=== PATIENT | female | born 1985 | race Hispanic/Latino ===

== ENCOUNTER 2022-04-25 11:22 | Emergency (ER) | payer OTHER ==
[~2022-04-25] VITALS: Ht 180.3 cm; Wt 115.2 kg
[2022-04-25 13:17] LABS: BASOPHILS % (AUTO) 0.3 % (0.0-5.0); EOSINOPHILS % (AUTO) 1.3 % (0.0-8.0); HEMATOCRIT 44.8 % (36-48); LYMPHOCYTES % (AUTO) 9.3 % (21.0-51.0); MEAN CORPUSCULAR HEMOGLOBIN 28.4 pg (27.0-33.0); MEAN CORPUSCULAR HGB CONC 31.5 g/dL (32.0-36.0); MEAN CORPUSCULAR VOLUME 90.3 fL (79-99); MONOCYTES % (AUTO) 2.9 % (3.0-13.0); NEUTROPHILS % (AUTO) 85.2 % (40.0-77.0); PLATELET COUNT (AUTO) 358 K/uL (130-400); RED BLOOD CELL COUNT(AUTO) 4.96 MIL/uL (4.00-5.50); RED CELL DISTRIBUTION WIDTH 12.4 % (11.0-15.5)
[2022-04-25] MEDS ORDERED: CYCL10TA16 PO (13:22)
[2022-04-25] MEDS ORDERED: NAPR500T6 PO (13:22)
[2022-04-25] MEDS ORDERED: PRED20TA3 PO (13:22)
[2022-04-25 13:24] VITALS: BP 110/70
[2022-04-25] MEDS ORDERED: KETOROLAC 30MG VIAL (30MG/ML) IM ONE (13:30)
[2022-04-25] MEDS ORDERED: PREDNISONE 20 MG TABLET PO ONE (13:30)
[2022-04-25 13:58] LABS: CREATININE 0.8 mg/dL (0.5-1.5); POTASSIUM 4.3 mmol/L (3.5-5.1)
[2022-04-25 14:21] LABS: ALBUMIN 3.3 g/dL (3.5-5.0); BILIRUBIN,TOTAL 0.3 mg/dL (0.2-1.0); TOTAL PROTEIN, SERUM 7.9 g/dL (6.0-8.3)
[2022-04-25 14:32] LABS: ERYTHROCYTE SEDIMENTATION RATE 35 MM/HR (0-20)
== END 2022-04-25 13:47 | disposition home or self-care (01) ==
LOC: EDH 11:22
DX: M54.31 Sciatica, right side (principal); M19.90 Unspecified osteoarthritis, unspecified site; M32.9 Systemic lupus erythematosus, unspecified; Z98.890 Other specified postprocedural states
CPT/HCPCS: 36415; 80053; 85025; 85651; 96372; 99283; J1885

== ENCOUNTER 2023-07-11 19:50 | Observation (INO) | payer OTHER ==
[~2023-07-11] VITALS: Ht 180.3 cm; Wt 106.0 kg
[~2023-07-11 19:50] MED LIST: CYCL10TA16 PO; NAPR500T6 PO; PRED20TA3 PO
[2023-07-11 20:35] VITALS: O2SAT 97
[2023-07-11 21:09] VITALS: BP 103/60; PULSE 75; RESP 18
[2023-07-11] MEDS ORDERED: ACETAMINOPHEN 325 MG TAB PO PRN ×2 (21:30)
[2023-07-11] MEDS ORDERED: LACTATED RINGERS IV ONE (21:30)
[2023-07-11] MEDS ORDERED: MORPHINE 2 MG SYG IV PRN (21:30)
[2023-07-11] MEDS ORDERED: ONDANSETRON 4MG INJ IV PRN (21:30)
[2023-07-11] MEDS ORDERED: MORPHINE 4 MG SYG IV PRN (21:30)
[2023-07-11 22:06] LABS: BASOPHILS # (AUTO) 0.02 K/uL (0.00-0.20); BASOPHILS % (AUTO) 0.8 % (0.0-5.0); EOSINOPHILS % (AUTO) 3.9 % (0.0-8.0); HEMATOCRIT 35.9 % (36-48); IMMATURE GRANULOCYTE ABSOLUTE 0.01 K/uL (0-1); LYMPHOCYTES # (AUTO) 0.8 K/uL (1.0-4.8); LYMPHOCYTES % (AUTO) 32.2 % (21.0-51.0); MEAN CORPUSCULAR HEMOGLOBIN 29.6 pg (27.0-33.0); MEAN CORPUSCULAR HGB CONC 34.3 g/dL (32.0-36.0); MEAN CORPUSCULAR VOLUME 86.5 fL (79-99); MONOCYTES # (AUTO) 0.2 K/uL (0.1-1.0); MONOCYTES % (AUTO) 7.4 % (3.0-13.0); NEUTROPHILS # (AUTO) 1.4 K/uL (1.8-7.7); NEUTROPHILS % (AUTO) 55.3 % (40.0-77.0); PLATELET COUNT (AUTO) 178 K/uL (130-400); RED BLOOD CELL COUNT(AUTO) 4.15 MIL/uL (4.00-5.50); RED CELL DISTRIBUTION WIDTH 12.2 % (11.0-15.5); WHITE BLOOD COUNT (AUTO) 2.6 K/uL (4.8-10.8)
[2023-07-11 22:18] LABS: HEMOGLOBIN A1C 5.1 % (4.0-6.0); INR 1.01 (0.85-1.15); PROTHROMBIN TIME 11.7 SEC (9.6-11.6)
[2023-07-11 22:19] LABS: PARTIAL THROMBOPLASTIN TIME 32.5 SEC (26.3-35.5)
[2023-07-11 22:31] LABS: MAGNESIUM 1.9 mg/dL (1.80-2.40); PHOSPHORUS 2.4 mg/dL (2.5-4.9)
[2023-07-11 22:53] LABS: BAND NEUTROPHILS % (MANUAL) 4 % (0-2); EOSINOPHILS % (MANUAL) 3 % (1-6); LYMPHOCYTES % (MANUAL) 20 % (22-44); MONOCYTES % (MANUAL) 12 % (2-9); REACTIVE LYMPHOCYTES 1 % (0-0); SEGMENTED NEUTROPHILS % 60 % (40-70); TOTAL CELLS COUNTED 100
[2023-07-11 22:54] LABS: MAN.DIFF COMMENT-IMPRESSION MANUAL DIFFERENTIAL; PLATELET MORPHOLOGY COMMENT ADEQUATE; WBC MORPHOLOGY VACUOLATION 1+
[2023-07-11 23:16] LABS: CREATININE 0.7 mg/dL (0.5-1.5); POTASSIUM 3.4 mmol/L (3.5-5.1)
[2023-07-11 23:21] LABS: ALBUMIN 2.6 g/dL (3.5-5.0); BILIRUBIN,TOTAL 0.3 mg/dL (0.2-1.0); TOTAL PROTEIN, SERUM 6.6 g/dL (6.0-8.3)
[2023-07-11] MEDS ORDERED: MAGNESIUM 2GM PREMIX 50ML 50 ML IV PRN (23:30)
[2023-07-11] MEDS ORDERED: POTASSIUM CHLORIDE 20MEQ/100ML 100 ML IV PRN (23:30)
[2023-07-11] MEDS ORDERED: POTASSIUM CHLORIDE 10% ELIXIR 20 MEQ/15 ML UDCUP PO PRN (23:30)
[2023-07-11 23:51] VITALS: BP 107/55; PULSE 77; RESP 18
[2023-07-12 04:00] VITALS: BP 110/52; PULSE 72; RESP 18
[2023-07-12 04:42] LABS: BASOPHILS # (AUTO) 0.02 K/uL (0.00-0.20); BASOPHILS % (AUTO) 0.8 % (0.0-5.0); EOSINOPHILS # (AUTO) 0.15 K/uL (0.00-0.70); EOSINOPHILS % (AUTO) 5.9 % (0.0-8.0); IMMATURE GRANULOCYTE ABSOLUTE 0.02 K/uL (0-1); LYMPHOCYTES # (AUTO) 0.9 K/uL (1.0-4.8); LYMPHOCYTES % (AUTO) 35.5 % (21.0-51.0); MEAN CORPUSCULAR HEMOGLOBIN 29.7 pg (27.0-33.0); MEAN CORPUSCULAR HGB CONC 33.8 g/dL (32.0-36.0); MEAN CORPUSCULAR VOLUME 87.9 fL (79-99); MONOCYTES # (AUTO) 0.2 K/uL (0.1-1.0); MONOCYTES % (AUTO) 8.2 % (3.0-13.0); NEUTROPHILS # (AUTO) 1.3 K/uL (1.8-7.7); NEUTROPHILS % (AUTO) 48.8 % (40.0-77.0); PLATELET COUNT (AUTO) 167 K/uL (130-400); RED BLOOD CELL COUNT(AUTO) 3.87 MIL/uL (4.00-5.50); RED CELL DISTRIBUTION WIDTH 12.3 % (11.0-15.5); WHITE BLOOD COUNT (AUTO) 2.6 K/uL (4.8-10.8)
[2023-07-12 04:52] LABS: CREATININE 0.7 mg/dL (0.5-1.5); POTASSIUM 3.3 mmol/L (3.5-5.1)
[2023-07-12] MEDS: ZOSYN 3.375GM+NS 50ML 50 ML IVPB SCH ×3 (05:02→21:02)
[2023-07-12 08:00] VITALS: BP 94/51; PULSE 60; RESP 18
[2023-07-12 08:14] VITALS: O2SAT 97
[2023-07-12] MEDS: FAMOTIDINE 20MG TAB PO SCH ×2 (09:01→21:02)
[2023-07-12] MEDS: HEPARIN 5,000 UNIT VIAL SQ SCH ×2 (09:03→13:29)
[2023-07-12] MEDS: BALSAM PERU/CASTOR OIL 60 GM TUBE TP SCH ×3 (09:06→21:02)
[2023-07-12] MEDS ORDERED: IOHEXOL 350 MG/ML 100ML INFUS..BTL IV ONE (10:08)
[2023-07-12 12:00] VITALS: BP 105/58; PULSE 62; RESP 18
[2023-07-12 16:00] VITALS: BP 103/62; PULSE 71; RESP 18
[2023-07-12 20:00] VITALS: BP 123/76; PULSE 74; RESP 18; O2SAT 97
[2023-07-13] VITALS: BP 95/51; PULSE 65; RESP 20
[2023-07-13 03:45] VITALS: BP 91/50; PULSE 69; RESP 20
[2023-07-13 04:58] LABS: BASOPHILS # (AUTO) 0.03 K/uL (0.00-0.20); EOSINOPHILS # (AUTO) 0.21 K/uL (0.00-0.70); HEMATOCRIT 33.3 % (36-48); IMMATURE GRANULOCYTE ABSOLUTE 0.01 K/uL (0-1); LYMPHOCYTES # (AUTO) 1.4 K/uL (1.0-4.8); LYMPHOCYTES % (AUTO) 47.8 % (21.0-51.0); MEAN CORPUSCULAR HEMOGLOBIN 29.2 pg (27.0-33.0); MEAN CORPUSCULAR HGB CONC 33.9 g/dL (32.0-36.0); MONOCYTES # (AUTO) 0.2 K/uL (0.1-1.0); NEUTROPHILS # (AUTO) 1.1 K/uL (1.8-7.7); NEUTROPHILS % (AUTO) 36.9 % (40.0-77.0); PLATELET COUNT (AUTO) 184 K/uL (130-400); RED BLOOD CELL COUNT(AUTO) 3.87 MIL/uL (4.00-5.50); RED CELL DISTRIBUTION WIDTH 12.3 % (11.0-15.5)
[2023-07-13] MEDS: ZOSYN 3.375GM+NS 50ML 50 ML IVPB SCH ×2 (05:15→14:43)
[2023-07-13 05:16] LABS: ALBUMIN 2.3 g/dL (3.5-5.0); BILIRUBIN,TOTAL 0.3 mg/dL (0.2-1.0); CREATININE 0.7 mg/dL (0.5-1.5); POTASSIUM 3.3 mmol/L (3.5-5.1); TOTAL PROTEIN, SERUM 6.1 g/dL (6.0-8.3)
[2023-07-13] MEDS: KCL 20 MEQ ERTAB PO PRN ×2 (06:42→10:23)
[2023-07-13 06:54] VITALS: BP 101/55; PULSE 70; RESP 18
[2023-07-13 06:57] LABS: BAND NEUTROPHILS % (MANUAL) 10 % (0-2); EOSINOPHILS % (MANUAL) 6 % (1-6); MAN.DIFF COMMENT-IMPRESSION MANUAL DIFFERENTIAL; MONOCYTES % (MANUAL) 10 % (2-9)
[2023-07-13 06:58] LABS: LYMPHOCYTES % (MANUAL) 37 % (22-44); PLATELET MORPHOLOGY COMMENT ADEQUATE; REACTIVE LYMPHOCYTES 2 % (0-0); SEGMENTED NEUTROPHILS % 35 % (40-70); TOTAL CELLS COUNTED 51; WBC MORPHOLOGY REACTIVE LYMPHS 1+
[2023-07-13 08:00] VITALS: O2SAT 97
[2023-07-13] MEDS ORDERED: RIVAROXABAN 20 MG TABLET PO SCH (08:00)
[2023-07-13] MEDS: FAMOTIDINE 20MG TAB PO SCH (08:20)
[2023-07-13] MEDS: BALSAM PERU/CASTOR OIL 60 GM TUBE TP SCH ×2 (09:07→14:46)
[2023-07-13 11:29] VITALS: BP 115/78; PULSE 63; RESP 18
[2023-07-13] MEDS ORDERED: KCL 20 MEQ ERTAB PO ONE (14:00)
[2023-07-13] MEDS ORDERED: CLIN300C3 PO (14:37)
[2023-07-13] MEDS ORDERED: RIVA20TA PO (14:40)
[2023-07-13] MEDS ORDERED: BALS60OI TP (14:40)
[2023-07-13 16:00] VITALS: BP 108/74; PULSE 69; RESP 18
== END 2023-07-13 17:25 | disposition home or self-care (01) ==
LOC: INTOOBSV 20:43 → 4CH 20:43
PROVIDERS: ADMIT Internal Medicine; ATTEND Internal Medicine
DX: E87.6 Hypokalemia (principal); L97.319 Non-pressure chronic ulcer of right ankle with unspecified severity; L40.9 Psoriasis, unspecified; L03.115 Cellulitis of right lower limb; M06.9 Rheumatoid arthritis, unspecified; D72.819 Decreased white blood cell count, unspecified; E11.9 Type 2 diabetes mellitus without complications; F12.90 Cannabis use, unspecified, uncomplicated; Z86.718 Personal history of other venous thrombosis and embolism; Z51.5 Encounter for palliative care; Z91.199 Patient's noncompliance with other medical treatment and regimen due to unspecified reason; Z79.899 Other long term (current) drug therapy
CPT/HCPCS: 96361 ×2; 83036 ×2; 83735; 84100; 80053 ×2; 85025 ×3; 85378; 85610; 85730; 86850; 86900; 86901; 87040 ×2; 83605; 36415 ×3; 73600; 71045; 93970; 93925; 84145; 96372; 96365; 96366 ×2; 96375; 80048; 84703; 87070; 71270; 84132; J2405; J2270; J2543 ×5; J1644 ×2; Q9967; G0378 ×3

== ENCOUNTER 2023-07-22 15:55 | Emergency (ER) | payer OTHER ==
[~2023-07-22] VITALS: Ht 180.3 cm; Wt 107.0 kg
[~2023-07-22 15:55] MED LIST changes: +BALS60OI TP; +CLIN300C3 PO; -CYCL10TA16 PO; -NAPR500T6 PO; -PRED20TA3 PO; +RIVA20TA PO
[2023-07-22 16:43] LABS: BASOPHILS # (AUTO) 0.03 K/uL (0.00-0.20); BASOPHILS % (AUTO) 0.2 % (0.0-5.0); EOSINOPHILS # (AUTO) 0.03 K/uL (0.00-0.70); EOSINOPHILS % (AUTO) 0.2 % (0.0-8.0); HEMATOCRIT 37.8 % (36-48); IMMATURE GRANULOCYTE ABSOLUTE 0.05 K/uL (0-1); LYMPHOCYTES # (AUTO) 0.9 K/uL (1.0-4.8); LYMPHOCYTES % (AUTO) 6.8 % (21.0-51.0); MEAN CORPUSCULAR HEMOGLOBIN 29.6 pg (27.0-33.0); MEAN CORPUSCULAR HGB CONC 33.1 g/dL (32.0-36.0); MEAN CORPUSCULAR VOLUME 89.6 fL (79-99); MONOCYTES # (AUTO) 1.3 K/uL (0.1-1.0); MONOCYTES % (AUTO) 10.1 % (3.0-13.0); NEUTROPHILS # (AUTO) 10.3 K/uL (1.8-7.7); NEUTROPHILS % (AUTO) 82.3 % (40.0-77.0); PLATELET COUNT (AUTO) 270 K/uL (130-400); RED BLOOD CELL COUNT(AUTO) 4.22 MIL/uL (4.00-5.50); RED CELL DISTRIBUTION WIDTH 12.9 % (11.0-15.5); WHITE BLOOD COUNT (AUTO) 12.5 K/uL (4.8-10.8)
[2023-07-22 17:02] LABS: ALBUMIN 2.9 g/dL (3.5-5.0); BILIRUBIN,TOTAL 0.8 mg/dL (0.2-1.0); CREATININE 1.5 mg/dL (0.5-1.5); TOTAL PROTEIN, SERUM 7.6 g/dL (6.0-8.3)
[2023-07-22 17:09] LABS: POTASSIUM 2.9 mmol/L (3.5-5.1)
[2023-07-22] MEDS ORDERED: POTASSIUM BICARB/CIT AC 25 MEQ TABLET.EFF PO ONE (17:30)
[2023-07-22] MEDS ORDERED: POTASSIUM CHLORIDE 10MEQ/100ML 10 MEQ/100 ML ML IV ONE (17:30)
[2023-07-22] MEDS ORDERED: CLIN-141 PO (18:33)
[2023-07-22] MEDS ORDERED: POTA-187 PO (18:33)
[2023-07-22] MEDS ORDERED: ONDANSETRON 4MG INJ ONE (19:45)
[2023-07-22] MEDS ORDERED: ONDA-104 PO (20:03)
[2023-07-22 20:06] VITALS: BP 122/54; PULSE 84; RESP 8; O2SAT 99
== END 2023-07-22 20:12 | disposition home or self-care (01) ==
LOC: EDH 15:55
DX: S81.001A Unspecified open wound, right knee, initial encounter (principal); E87.6 Hypokalemia; F41.9 Anxiety disorder, unspecified; F32.A Depression, unspecified; Z79.899 Other long term (current) drug therapy; Z98.890 Other specified postprocedural states; X58.XXXA Exposure to other specified factors, initial encounter; Y93.89 Activity, other specified; Y92.89 Other specified places as the place of occurrence of the external cause; Y99.8 Other external cause status
CPT/HCPCS: 99284; 96365; 96375; 83735; 80053; 85025; 83605; 36415; J2405; J3480; 96374